=== PATIENT | female | born 1970 | race African-American/Black ===

== ENCOUNTER 2020-05-10 14:32 | Emergency (ER) | payer SELFPAY ==
[~2020-05-10] VITALS: Ht 165.1 cm; Wt 68.5 kg
[2020-05-10 14:39] VITALS: BP 132/84
== END 2020-05-10 15:09 | disposition home or self-care (01) ==
LOC: ER 14:40
DX: Z00.00 Encounter for general adult medical examination without abnormal findings (principal); Z76.0 Encounter for issue of repeat prescription; J40 Bronchitis, not specified as acute or chronic
CPT/HCPCS: 99283